=== PATIENT | female | born 1935 | race Caucasian/White ===

== ENCOUNTER 2021-03-24 10:36 | Inpatient (IN) | payer OTHER, BC ==
[~2021-03-24] VITALS: Ht 177.8 cm; Wt 88.6 kg
[2021-03-24] VITALS (27 sets, daily range): BP systolic 77–112; BP diastolic 35–63
--- NOTE | ~2021-03-24 | EMS ---
[place] [id number] [facility] Patient Care Report Name: JACQUE GONZALEZ Room #: 247-P ADM IN M.R.#: [id number] Admission: 03/24/21 Attend Phys: Bora Campbell MD Discharge: Date of : [birth year] Report #: [id number] THIS REPORT FOR: //name// Report Transmitted: 03/25/2021 09:17 EMS Care Summary [place], [place]/[facility] Incident [id number] @ 03/24/2021 10:07 Incident Location [address] [place] [address] Patient JACQUE GONZALEZ Female, 85 Years 1935 Patient Address [address] [place] [address] Patient History None Reported, Patient Allergies No known allergies, Patient Medications None Reported, Chief Complaint weakness Disposition Transported No Lights/Vina Dispatch Reason Sick Person Transported To [facility] Narrative m29 responded to a patient who was complaining of weakness. Upon arrival m29 found the patient sitting on the toilet. The patient stated she felt increasingly weak this morning which was uncommon for her. The patient wanted to be evaluated by her DR. m29 transported [place] [address] EMS Patient Care Report Name: JACQUE GONZALEZ Room #: 247-P [facility] IN MPankaj.#: [id number] Admission: 03/24/21 Attend Phys: Bora Campbell MD Discharge: Date of : [birth year] Report #: [id number] Initial Vitals @10:23P: 77,R: 18,BP: 105/58,Pain: 2/10,GCS: 15,Glucose: 112,SpO2: 96,Revised Trauma: 12, Assessments @10:30MENTAL:No Abnormalities,SKIN:No Abnormalities,HEENT:Head/Face: No Abnormalities,Eyes: No Abnormalities,Neck/Airway: No Abnormalities,LUNG SOUNDS:General: No Abnormalities,Left Upper: No Abnormalities,Right Upper: No Abnormalities,Left Lower: No Abnormalities,Right Lower: No Abnormalities,ABDOMEN:General: No Abnormalities,Left Upper: No Abnormalities,Right Upper: No Abnormalities,Left Lower: No Abnormalities,Right Lower: No Abnormalities,PELVIS//GI:No Abnormalities,EXTREMITIES:Left Arm: No Abnormalities,Right Arm: No Abnormalities,Left Leg: No Abnormalities,Right Leg: No Abnormalities,PULSE:NEURO:No Abnormalities, Impression Generalized Weakness Procedures @10:20ALS AssessmentResponse: UnchangedSucceeded Timeline 10:05,Call Received 10:05,Dispatch Notified 10:07,Dispatched 10:07,En Route 10:16,On Scene 10:17,At Patient 10:20,ALS Assessment,Response: UnchangedSucceeded, 10:23,BP: 105/58 M,PULSE: 77,RR: 18 R,SPO2: 96 Ox,ETCO2: ,B,PAIN: 2,GCS: 15, 10:25,Depart Scene 10:31,At Destination 10:46,Call Closed Disclaimer v1.1 Copyright 202 [employer] This EMS Care Summary contains data elements from the applicable legal record (which may be displayed differently). It is designed to provide pertinent information for the following purposes: continuity of care, clinical quality, and state data reporting. The complete legal record is available to ED staff and administrators of the receiving hospital in [employer] Patient Tracker. All data is provided "as is."
[2021-03-24] MEDS ORDERED: LIPITOR10 MG PO ×2 (11:13)
[2021-03-24] MEDS ORDERED: ELIQUIS2.5 MG PO ×2 (11:13)
[2021-03-24] MEDS ORDERED: KLOR-CON M2020 MEQ PO ×2 (11:14)
[2021-03-24] MEDS ORDERED: MEMANTINE HCL E28 MG PO ×2 (11:14)
[2021-03-24] MEDS ORDERED: KAPSPARGO SPRIN25 MG PO ×2 (11:14)
[2021-03-24] MEDS ORDERED: OMEPRAZOLE 20 M20 M1 PO ×2 (11:14)
[2021-03-24 11:17] LABS: ABSOLUTE NEUTROPHILS 4.7 thou/uL (1.4-8.2); BASOPHILS 1.1 % (0.0-2.0); EOSINOPHILS 2.2 % (0.0-3.0); HEMATOCRIT 35.7 % (37.0-47.0); HEMOGLOBIN 12.3 gm/dL (12.0-15.0); LYMPHOCYTES 22.6 % (24.0-44.0); MCH 31.4 pg (26.0-34.0); MCHC 34.3 g/dL (28.0-37.0); MCV 91.4 fL (80.0-100.0); MONOCYTES 4.4 % (1.0-8.0); PLATELET COUNT 118 thou/uL (150-400); POLYS 69.7 % (36.0-66.0); WBC 6.8 thou/uL (4.0-11.0)
[2021-03-24 11:30] LABS: CALCIUM 8.2 mg/dL (8.5-10.1); CREATININE 2.7 mg/dL (0.6-1.0)
[2021-03-24 11:32] LABS: POTASSIUM 2.7 mmol/L (3.5-5.1)
[2021-03-24 11:33] LABS: APTT 29.5 Seconds (24.5-32.8); INR 1.4
--- NOTE | 2021-03-24 13:39 | EKG ---
[place] [address] [facility] [place] [address] ELECTROCARDIOGRAM REPORT Name: JACQUE GONZALEZ Room #: 170-3 ADM IN M.R.#: [id number] Admission: 03/24/21 Attend Phys: Bora Campbell MD Discharge: Date of : [birth year] Report #: [id number] [facility] ED Test Date: 2021-03-24 Test Time: 10:49:55 Pat Name: JACQUE GONZALEZ Department: Room: 170 Gender: F [employer]: NMD : 1935 Requested By: Miguelito Telles Order Number: [id number] : Yuval Jernigan Measurements Intervals [place] Rate: 88 P: IN: QRS: -16 QRSD: 104 T: 38 QT: 428 QTc: 518 Interpretive Statements Atrial fibrillation Abnormal R-wave progression, early transition Probable inferior infarct, recent Prolonged QT interval No previous ECG available for comparison Electronically Signed On 03-24-2021 13:39:33 CDT by Yuval Jernigan [email or web address] <ELECTRONICALLY SIGNED> By: Yuval Jernigan MD, [facility] 03/24/21 1339 1049 1049 Yuval Jernigan MD, FACC /EPI
--- NOTE | 2021-03-24 15:01 | 2DMMODE ---
[facility] [place] [address] 2 D/M-MODE ECHOCARDIOGRAM Name: JACQUE GONZALEZ Room #: 170-3 ADM IN M.R.#: [id number] Admission: 03/24/21 Attend Phys: Bora Campbell MD Discharge: Date of : [birth year] Report #: [id number] THIS REPORT FOR: cc: Alvino Mak MD, Randy MD Lammoglia, Francisco J. MD ~ APPROVED REPORT Study performed: 03/24/2021 14:21:12 EXAM: Comprehensive 2D, Doppler, and color-flow Echocardiogram Patient Location: ER Status: routine BSA: 1.99 HR: 73 bpm BP: 87/46 mmHg Rhythm: Atrial Fibrillation Other Information Study Quality: Adequate/flat on back Indications Elevated troponin. NSTEMI. Hx: Afib 2D Dimensions IVSd: 10.35 (7-11mm) LVOT Diam: 20.56 (18-24mm) LVDd: 42.17 mm PWd: 11.77 (7-11mm) LVDs: 31.53 (25-40mm) Left Atrium: 36.63 (27-40mm) Aortic Root: 32.44 mm Volumes Left Atrial Volume (Systole) Single Plane 4CH: 33.91 mL Single Plane 2CH: 46.30 mL LA ESV Index: 22.00 mL/m2 Aortic Valve AoV [place].: 1.21 m/s AO Peak Gr.: 5.83 mmHg LVOT Max P.47 mmHg LVOT Max V: 0.79 m/s SEAN Vmax: 2.16 cm2 [facility] [email or web address] [address] 2 D/M-MODE ECHOCARDIOGRAM Name: JACQUE GONZALEZ Room #: 170-3 ADM IN ..#: [id number] Admission: 03/24/21 Attend Phys: Bora Campblel MD Discharge: Date of : [birth year] Report #: [id number] Pulmonary Valve PV [place].: 0.57 m/s PV Peak Gr.: 1.29 mmHg Tricuspid Valve TR [place].: 2.89 m/s RAP Estimate: 5.00 mmHg TR Peak Gr.: 33.46 mmHg PA Pressure: 38.00 mmHg Left Ventricle The left ventricle is normal size. Regional wall motion abnormalities are noted. Mild basal septal hypertrophy is present. Left ventricular systolic function is normal. LVEF is 50-55%. This study is not technically sufficient to allow evaluation of the LV diastolic function due to atrial fibrillation. Right Ventricle The right ventricle is normal size. The right ventricular systolic function is normal. Atria The left atrium size is normal. The right atrium size is normal. Aortic Valve The aortic valve is normal in structure; mildly sclerotic. No aortic regurgitation is present. There is no aortic valvular stenosis. Mitral Valve The mitral valve is normal in structure. Mild mitral regurgitation. No evidence of mitral valve stenosis. Tricuspid Valve The tricuspid valve is normal in structure. Trace to mild tricuspid regurgitation. Estimated PAP is 38mmHg. Pulmonic Valve Pulmonic valve leaflets are thickened. Great Vessels The aortic root is normal in size. Ascending aorta is not well visualized. IVC is normal in size and collapses >50% with inspiration. [facility] [email or web address] [address] 2 D/M-MODE ECHOCARDIOGRAM Name: JACQUE GONZALEZ Room #: 170-3 ADM IN .R.#: [id number] Admission: 03/24/21 Attend Phys: Bora Campbell MD Discharge: Date of : [birth year] Report #: [id number] There is no pericardial effusion. <Conclusion> The left ventricle is normal size. Mild basal septal hypertrophy is present. Regional wall motion abnormalities are noted. LVEF is 50-55%. The left atrium size is normal. The aortic valve is normal in structure; mildly sclerotic. The mitral valve is normal in structure. Mild mitral regurgitation. The tricuspid valve is normal in structure. Trace to mild tricuspid regurgitation. Estimated PAP is 38mmHg. Pulmonic valve leaflets are thickened. The aortic root is normal in size. There is no pericardial effusion. <ELECTRONICALLY SIGNED> By: Sergei Cardenas MD 03/24/211499 1500 Gallo Cardenas MD /SHIRA
--- NOTE | 2021-03-24 15:17 | NUR ---
PT WAS MORE RESPONSIVE AND ANSWERING QUESTIONS WHEN ARRIVING TO THE ED, PT NOW IS ONLY WAKING TO A SHAKING STIMULI. WHEN ATTEMPTING TO DRAW BLOOD ON THIS PATIENT SHE HAD NO RESPONSE TO PAIN. BP HAS BEEN STABILIZED ON THE 5MCG DOSING AND PATIENTS MENTAL COGNITION CONTINUES TO DECLINE. PROVIDER NOTIFIED AT THIS TIME
[2021-03-24 17:38] LABS: URINE BILIRUBIN NEGATIVE (Negative); URINE BLOOD 1+ (Negative); URINE CLARITY SL CLOUDY; URINE COLOR YELLOW; URINE GLUCOSE-RANDOM* NEGATIVE (Negative); URINE KETONES NEGATIVE (Negative); URINE LEUKOCYTES-REFLEX NEGATIVE (Negative); URINE NITRITE-REFLEX NEGATIVE (Negative); URINE PROTEIN (DIPSTICK) TRACE (Negative); URINE SPECIFIC GRAVITY >= 1.030 (1.005-1.035)
[2021-03-24 17:48] LABS: AMP/METHAMP Negative (Negative); BARBITURATES Negative (Negative); BENZODIAZEPINES Negative (Negative); COCAINE Negative (Negative); METHADONE Negative (Negative); OPIATES Negative (Negative); PCP Negative (Negative)
[2021-03-24 17:59] LABS: BACTERIA-REFLEX >30 Many /HPF (None Seen); SQUAMOUS 0-3 Few /LPF (0-3); URINE RBC 1-2 Rare /HPF (NONE SEEN); URINE WBC-REFLEX 0-5 Rare /HPF (0-5)
--- NOTE | 2021-03-24 19:13 | NUR ---
Patient arrived to ICU at 1730. She was by herself. Her spouse went home. Nurse talked with him in regards to visiting hours, and to second consent for central line placement. He expressed he understands the risks and benefits. He expressed he will be here in the morning. Patient is oriented, however wakes up and asks where she is. She is easily reoriented, but forgetful. She expressed she understood the risks and benefits of the central line as well. Consent signed. She is not progressing towards plan of care as evidenced by continued need for levophed with increasing increments.
--- NOTE | 2021-03-24 19:45 | NUR ---
VAT CONSULTED FOR PICC PLACEMENT. LEFT TL JACC IJ PLACED, TRIMMED 25/9CM EXTERNAL. PT TOLERATED WELL. CXR SHOWED TIP CURLED DIRECTING CEPHALED. RIGHT UPPER BASILIC TL PICC PLACED, TRIMMED 48CM/1CM EXTERNAL. PT TOLERATED WELL. BEDSIDE RN TO PULL IJ AND HOLD PRESSURE. CXR DONE.
--- NOTE | 2021-03-24 21:28 | NUR ---
This RN obtained consent from patient at 2030 for release of medical records from [facility]. Forms completed and faxed to medical records.
[2021-03-25] VITALS (84 sets, daily range): BP systolic 96–131; BP diastolic 31–65
[2021-03-25 05:14] LABS: HEMATOCRIT 32.2 % (37.0-47.0); HEMOGLOBIN 11.1 gm/dL (12.0-15.0); MCH 31.9 pg (26.0-34.0); MCHC 34.6 g/dL (28.0-37.0); MCV 92.2 fL (80.0-100.0); RBC 3.49 mil/uL (4.20-5.00); RDW 13.2 % (10.5-14.5); WBC 7.3 thou/uL (4.0-11.0)
[2021-03-25 06:18] LABS: CALCIUM 7.9 mg/dL (8.5-10.1); POTASSIUM 3.3 mmol/L (3.5-5.1)
--- NOTE | 2021-03-25 07:56 | EKG ---
[facility] [place] [address] ELECTROCARDIOGRAM REPORT Name: JACQUE GONZALEZ Room #: 247-P ADM IN M.R.#: [id number] Admission: 03/24/21 Attend Phys: Bora Campbell MD Discharge: Date of : [birth year] Report #: [id number] [facility] Test Date: 2021-03-25 Test Time: 07:27:41 Pat Name: JACQUE GONZALEZ Department: Room: [facility] Gender: F Plaster [employer]: JOAQUIN : 1935 Requested By: Opal Hi Order Number: [id number] MD: Alvarado Moon Measurements Intervals [place] Rate: 71 P: 65 IN: 191 QRS: 9 QRSD: 91 T: 82 QT: 394 QTc: 429 Interpretive Statements Sinus rhythm Borderline ST depression, lateral leads ST elevation, consider inferior injury Compared to ECG 03/24/2021 10:49:55 Atrial fibrillation no longer present Prolonged QT interval no longer present Electronically Signed On 03-25-2021 7:55:53 CDT by Alvarado Moon [email or web address] <ELECTRONICALLY SIGNED> By: Alvarado Moon MD, [facility] 03/25/21 0755 6 6 Alvarado Moon MD, [facility] /EPI
--- NOTE | 2021-03-25 12:00 | NUR ---
spouse present intermittently this am. updated on all cares. questions answered. pt resting quietly when undisturbed. physical therapy present to work with pt.
--- NOTE | 2021-03-25 15:45 | NUR ---
Patient admits to ICU with weakness/dehydration. Patient somulent. at bedside. Sp reports he has known patient since 2nd grade. They went to [employer] together. Both prev and spouses past away. They reunited on facebook. They have been less than a month.Patient lives in [facility]. THey and she moved from [facility] to and arrived Feb 14. Feb 17- Patient admitted to [facility] with chest pain. Spouse reports ruled out and dc home. He reports neurologist in [place] diagnosed patient with mild cog disorder. Spouse reports he believes some of her dementia may have caused her to decline. He reports he was excited to introduce her to friends and go out out eat but patient lacked interest. he reports she goes from reclyner to bathroom, from bed to bathroom. More sedintary lifestyle. He has chef head to assist with weekly meals. He has arranged medical apts in area. She [place] apt [place], She has a cyst on her thigh in which he has a f/u apt with general sx. His PCP is with [facility]. He is interested in psychiatry for f/u on outpatient basis. He reports patient uses a cane for ambulation. All needs on one level in home. One step to enter home. Patient with 7 children on [facility]. Spouse has been updating family. He reports she was excited to come to , the flight went well. Reviewed role of casemgt regarding dc planning. Casemgt following.
[2021-03-25 15:57] LABS: MAGNESIUM 1.6 mg/dL (1.8-2.4); POTASSIUM 3.1 mmol/L (3.5-5.1)
[2021-03-26] VITALS (34 sets, daily range): BP systolic 82–139; BP diastolic 36–76
[2021-03-26 05:09] LABS: CALCIUM 7.4 mg/dL (8.5-10.1); CREATININE 1.5 mg/dL (0.6-1.0); POTASSIUM 3.8 mmol/L (3.5-5.1)
--- NOTE | 2021-03-26 06:12 | NUR ---
ASSUMED CARE AT 1900. TURNED LEVOPHED OFF AT 1999, PT MAINTAINED NORMAL BP OVERNIGHT, MAP CONSISTENTLY IN 70'S. PT DROWSY, BUT ABLE TO REMEMBER [place], HOSPITAL, AND WHY SHE WAS HERE, WELL MONTH AND YEAR. THIS MORNING KEEPS WORRYING SHE WILL HAVE A BOWEL MOVEMENT AND "MAKE A MESS" BUT INTERACTS APPROPRIATELY NOT IMPULSIVE OR ANXIOUS/AGITITED. PROGRESSING TOWARDS GOALS, POSSIBLY TRANSFER OUT OF ICU TODAY.
--- NOTE | 2021-03-26 14:30 | NUR ---
Discussed during unit rounds and los with the hospitalist. Starting diet. Dr Fernando consult- new order r/t family feeling that she is depressed. Therapy to eval as well. No anticipated dc, and no anticipated dc over the weekend. Will cont. following as needed.
--- NOTE | 2021-03-26 18:17 | NUR ---
PT ABLE TO GET UP TODAY WITH ASSISTANCE FROM NURSING STAFF AND PT TO USE BEDSIDE COMMODE TO HAVE BM. PT ALSO ABLE TO SIT IN CHAIR TODAY WITH MINIMAL ASSISTANCE. PT TOLERATED CHAIR WELL TODAY, RESTING COMFORTABLY THROUGHOUT THE DAY. PT ASSISTED BACK TO BED AT APPROX 1600. PT VERY PLEASENT, AT BEDSIDE, PT A&OX3 NEEDS REDIRECTION OCCASSIONALLY. PT HAD NO ADVERSE EVENT NOR COMPLAINTS TODAY. WILL CONTINUE TO FOLLOW POC.
[2021-03-27] VITALS (17 sets, daily range): BP systolic 99–146; BP diastolic 44–76
[2021-03-27 03:32] LABS: HEMATOCRIT 29.7 % (37.0-47.0); HEMOGLOBIN 10.3 gm/dL (12.0-15.0); MCHC 34.5 g/dL (28.0-37.0); MCV 92.6 fL (80.0-100.0); RBC 3.21 mil/uL (4.20-5.00); RDW 13.3 % (10.5-14.5)
[2021-03-27 03:50] LABS: CALCIUM 7.6 mg/dL (8.5-10.1); CREATININE 1.4 mg/dL (0.6-1.0); POTASSIUM 3.4 mmol/L (3.5-5.1)
--- NOTE | 2021-03-27 05:41 | NUR ---
NO ACUTE EVENTS OVERNIGHT. PT RESTING COMFORTABLY.
[2021-03-27 09:09] LABS: CHOLESTEROL 160 mg/dL (<200); HDL CHOLESTEROL 28 mg/dL (>40); LDL CHOLESTEROL 109 mg/dL (<100); TC:HDL 5.7 Ratio (Not establshd); TRIGLYCERIDE 119 mg/dL (<150); VLDL 24 mg/dL (<40)
--- NOTE | 2021-03-27 16:43 | NUR ---
PT ALERT AND ORIENTED WITH FORGETFULNESS. PRN PAIN MED GIVEN FOR ABD PAIN. AT THE BEDSIDE. UPDATED ON PT'S PLAN OF CARE.
--- NOTE | 2021-03-27 17:43 | NUR ---
ORDERS GIVEN TO TRANSFER PT TO [facility] ROOM [address] V[address]REAL. NOTIFIED. REPORT CALLED ON TO THE FLOOR NURSE. PT TRANSFERED TO ROOM 210 WITH ALL HER BELONGINGS IN STABLE CONDITION.
[2021-03-28 04:45] VITALS: BP 118/67
[2021-03-28 06:49] LABS: HEMATOCRIT 32.4 % (37.0-47.0); HEMOGLOBIN 11.2 gm/dL (12.0-15.0); MCH 32.1 pg (26.0-34.0); MCHC 34.6 g/dL (28.0-37.0); MCV 92.6 fL (80.0-100.0); RBC 3.49 mil/uL (4.20-5.00); RDW 13.7 % (10.5-14.5); WBC 7.1 thou/uL (4.0-11.0)
[2021-03-28 07:15] LABS: CREATININE 1.4 mg/dL (0.6-1.0); POTASSIUM 3.9 mmol/L (3.5-5.1)
[2021-03-28 08:42] VITALS: BP 101/51
[2021-03-28 12:51] VITALS: BP 144/49
--- NOTE | 2021-03-28 16:26 | NUR ---
Assumed pt care at 7am.Pt in bed resting and wanted to take bath today. Assessment completed.vss.Pt c/o back pain and requested for med. [place] given as ordered with relief. Dr Moon and Adrian here,order noted.Pt here,updates given.Cardiology Teacher gave bath to pt after lunch and complete bed change done.Pt in chair resting and watching tv with . No further c/o. Dr Fernando will see pt later this evening or tomorrow .Will continue to monitor.
[2021-03-28 16:32] VITALS: BP 119/61
[2021-03-28 19:55] VITALS: BP 104/54
--- NOTE | 2021-03-29 04:41 | NUR ---
PT LYING IN BED. DENIES PAIN. RESTING COMFORTABLY. NO NEEDS VOICED. CALL LIGHT WITHIN REACH. FREQUENT OBSERVATION.
[2021-03-29 04:45] VITALS: BP 118/61
[2021-03-29 06:40] LABS: HEMATOCRIT 31.2 % (37.0-47.0); HEMOGLOBIN 10.6 gm/dL (12.0-15.0); MCH 31.4 pg (26.0-34.0); MCHC 33.8 g/dL (28.0-37.0); MCV 92.7 fL (80.0-100.0); RBC 3.37 mil/uL (4.20-5.00); RDW 13.8 % (10.5-14.5); WBC 5.4 thou/uL (4.0-11.0)
[2021-03-29 06:44] LABS: CALCIUM 8.3 mg/dL (8.5-10.1); CREATININE 1.5 mg/dL (0.6-1.0); POTASSIUM 4.1 mmol/L (3.5-5.1)
[2021-03-29 07:00] VITALS: BP 109/63
--- NOTE | 2021-03-29 10:29 | NUR ---
Assumed care of pt at 0700. Pt awake and alert but forgetful. Pt feeling weak and sleepy. Afib on the monitor. Dupont catheter in place. Family at bedside. Call light within reach. Fall precautions in place. Will continue to monitor.
[2021-03-29 11:20] VITALS: BP 107/57
[2021-03-29 15:00] VITALS: BP 106/65
[2021-03-29 20:15] VITALS: BP 115/61
[2021-03-30 01:41] VITALS: BP 122/57
--- NOTE | 2021-03-30 02:35 | NUR ---
PT HAS BEEN RESTING COMFORTABLY. WILL OPEN EYES AND ANSWER QUESTIONS. REPORTS JUST FEELING VERY TIRED. COVID TEST ORDERED AND COLLECTED FOR PURPOSES OF POSSIBLE TRANSFER TO [facility]. AFEBRILE. PT WAS AFIB IN THE 120'S SOMETIMES 130'S LOPRESSOR ORDERED AND GIVEN - RATE BETTER.PT DENIES ANY SOA OR CHEST PAIN. CHAVES TO D/D, DARK YELLOW U/O. SHE IS NPO FOR STRESS TEST IN THE MORNING.PT IS ALERT AND ORIENTED WITH FORGETFULNESS AND SLIGHT CONFUSION AT TIMES.
[2021-03-30 04:30] VITALS: BP 140/75
[2021-03-30 07:00] VITALS: BP 125/59
--- NOTE | 2021-03-30 10:06 | NUR ---
PT OFF UNIT TO [facility].
--- NOTE | 2021-03-30 13:00 | NUR ---
PT RETURN FROM [facility].
[2021-03-30 14:58] VITALS: BP 105/49
--- NOTE | 2021-03-30 17:14 | NUR ---
PT WILL STAY THE NIGHT ON 2N AND HAVE A SURGICAL CONSULT IN THE AM. WILL CONTINUE TO ASSESS.
[2021-03-30 19:55] VITALS: BP 107/68
--- NOTE | 2021-03-31 02:23 | NUR ---
PT IS A/O X4 WITH FORGETFULNESS AND NOTED FORGETFULNESS THE NIGHT HAS PROGRESSED COMPARED TO THE START OF SHIFT. ROOM AIR. VSS. AFEBRILE. C/O RIGHT SIDED ABDOMINAL PAIN. CHAVES IN PLACE DRAINING APPROPRIATELY. NO BM THIS SHIFT. NPO SINCE MIDNIGHT. FALL PRECAUTIONS IN PLACE, CALL LIGHT IS WITHIN REACH. WILL CONTINUE TO MONITOR.
[2021-03-31 04:20] VITALS: BP 117/49
[2021-03-31 06:28] LABS: HEMATOCRIT 28.6 % (37.0-47.0); MCH 32.2 pg (26.0-34.0); RBC 3.1 mil/uL (4.20-5.00); RDW 14.1 % (10.5-14.5); WBC 4.2 thou/uL (4.0-11.0)
[2021-03-31 06:31] LABS: CALCIUM 8.1 mg/dL (8.5-10.1); CREATININE 1.6 mg/dL (0.6-1.0); POTASSIUM 3.9 mmol/L (3.5-5.1)
[2021-03-31 08:30] VITALS: BP 110/56
[2021-03-31 11:30] VITALS: BP 128/63
[2021-03-31 16:00] VITALS: BP 127/65
[2021-03-31] MEDS ORDERED: METOPROLOL SUCC50 MG PO ×2 (16:39)
[2021-03-31] MEDS ORDERED: LIPITOR 20 MG T20 M1 PO ×2 (16:39)
[2021-03-31] MEDS ORDERED: CARDIZEM CD 18180 M3 PO ×2 (16:39)
[2021-03-31] MEDS ORDERED: ARTHRITIS PAIN100 GM TOP ×2 (16:41)
--- NOTE | 2021-03-31 17:03 | NUR ---
REPORT CALLED TO ASMITA RN [facility]
--- NOTE | 2021-03-31 17:22 | NUR ---
LOU CALLED AND INSTRUCTED [facility] DOCTOR INSTRUCT TO DISCONTINUE CHAVES CATHETER.
--- NOTE | 2021-03-31 17:46 | NUR ---
PICC LINE AND CHAVES DOSCONTINUED. PT DISCHARGED TO [facility] AND DR VALENZUELA UPDATED ON FLOOR.
--- NOTE | 2021-03-31 17:52 | NUR ---
Patient to dc to [facility] unit today.
== END 2021-03-31 17:54 | DRG 280 ==
LOC: ER 10:36 → ICU 12:19 → EROBS 12:19 → ICU 17:21 → 2N 03-27 17:44
PROVIDERS: Emergency Medicine; Internal Medicine; Nurse Practitioner; Psychiatry & Neurology Psychiatry; ADMIT Hospitalist; ATTEND Hospitalist
PROC: 05H633Z Insertion of Infusion Device into Left Subclavian Vein, Percutaneous Approach (ICD-10-PCS; principal; 2021-03-24)
DX: I21.4 Non-ST elevation (NSTEMI) myocardial infarction (principal); N17.0 Acute kidney failure with tubular necrosis; R65.11 Systemic inflammatory response syndrome (SIRS) of non-infectious origin with acute organ dysfunction; Z88.2 Allergy status to sulfonamides; Z20.822 Contact with and (suspected) exposure to COVID-19; Z79.01 Long term (current) use of anticoagulants; K21.9 Gastro-esophageal reflux disease without esophagitis; I10 Essential (primary) hypertension; Z90.49 Acquired absence of other specified parts of digestive tract; E87.6 Hypokalemia; E86.0 Dehydration; I48.0 Paroxysmal atrial fibrillation; I95.9 Hypotension, unspecified; Z68.28 Body mass index [BMI] 28.0-28.9, adult; E78.5 Hyperlipidemia, unspecified; F32.9 Major depressive disorder, single episode, unspecified; F41.9 Anxiety disorder, unspecified
CPT/HCPCS: 10078; 10081; 10196; 27000

== ENCOUNTER 2021-03-31 17:27 | Inpatient (IN) | payer OTHER, BC ==
[~2021-03-31] VITALS: Ht 177.8 cm; Wt 88.5 kg
[~2021-03-31 17:27] MED LIST: ARTHRITIS PAIN100 GM TOP; CARDIZEM CD 18180 M3 PO; ELIQUIS2.5 MG PO; KAPSPARGO SPRIN25 MG PO; KLOR-CON M2020 MEQ PO; LIPITOR 20 MG T20 M1 PO; LIPITOR10 MG PO; MEMANTINE HCL E28 MG PO; METOPROLOL SUCC50 MG PO; OMEPRAZOLE 20 M20 M1 PO
--- NOTE | 2021-03-31 18:42 | NUR ---
1751 pt arrived unit vis w/c from [address] [place] [address]. Alert and oriented to person. pt is confused, aware she is in the hospital, but thought she was in [place]. PT KNEW IT WAS 2020 BUT thought it was September. Report given by 2N RN stated pt was x1 assist and ambulates with a walker but upon arrival to [facility] pt was a max x2 assist and had to use a w/c. She has a large bruise to her inner right arm, a medium sized bruise to her left inner elbow, and a bruise to the left side of her neck. Per report pt had a richards in due to urinary retention but was removed prior to arrival to the unit, along with a PICC line. Pt reports passive SI with wishes to go to sleep and not wake up, that she reports "comes and goes" and is currently having the thoughts "a little bit". Pt denied plan and intent and was able to contract for safety. Pt reports a decrease in appetite and did not wish to eat her dinner tonight.
[2021-03-31 19:13] VITALS: BP 138/65
--- NOTE | 2021-04-01 02:37 | NUR ---
PATIENT WAS VERY ORGANIZED WHEN I TALK TO HER, DENIES SI/HI BUT DOES RATE HER DEPRESSION AND ANXIETY A 7/10. PATIENT HOOKED UP WITH AN OLD HIGHSCHOOL BOYFRIEND AND SHE CAME TO TO RECONNECT WITH HIM. AND AFTER ONE WEEK THEY AND NOW SHE IS HAVING SECOND THOUGHTS. THE EVENING PROGRESSED, PATIENT BECAME MORE CONFUSED AND HAD TO BE TOLD SEVERAL TIMES THAT IT WAS NIGHT TIME. PATIENT EVENTUALLY WENT TO SLEEP AND HAS SLEPT THROUGH THE NIGHT.
[2021-04-01 06:57] LABS: CHOLESTEROL 120 mg/dL (<200); HDL CHOLESTEROL 20 mg/dL (>40); LDL CHOLESTEROL 80 mg/dL (<100); TRIGLYCERIDE 101 mg/dL (<150); VLDL 20 mg/dL (<40)
[2021-04-01 09:37] VITALS: BP 106/50
--- NOTE | 2021-04-01 11:09 | NUR ---
04-01-2021--1030--Met with Dr. Manning and patient in my office to begin collecting information for the completion of psychosocial assessment. The doctor would like a phone meeting with patient and new David ([phone]). (He is listed as her DPOA however Dr. Fernando stated in her notes she has the capacity to change her DPOA if she decides to.) Patient states that she was on February 26, 2021 to an old classmate (they first met in 2nd grade). She found him online and they texted a couple of times. They were both so they met in person and got . She was originally from [facility] he wanted her to move to [place] with him but she would prefer if he were to move to [place] with her. Patient was admitted to this hospital for a "heart attack". The surgeon wants her to have her gallbladder out an she asked the doctor his opinion and he told her any surgery is dangerous but at her age he would suggest trying other options first. Patient states she is very tired and doctor told her she didn't have to do groups today as she just got here. Call attempted to David to set up meeting for tomorrow. No answer and no answering machine. Will attempt call later this date.
[2021-04-01 11:57] VITALS: BP 106/50
--- NOTE | 2021-04-01 13:51 | NUR ---
04-01-2021--7769--Call to Mr. Hargrove, patient's . I explained we were wanting to do a family meeting on the phone tomorrow at 11:00. He stated he would be available.
--- NOTE | 2021-04-01 14:03 | NUR ---
04-01-2021--1400--Doctor notified of family meeting tomorrow, 04-02-2021 with and patient for 1100.
--- NOTE | 2021-04-01 15:14 | NUR ---
PATIENT CARE RESUMMED AT 0700. PATIENT WAS UP IN A MICHAELA-CHAIR UPON ROUNDS. PATIENT IS A&O*3, PLEASENT, BUT ANXIOUS. PATIENT STATES SHE HAS A DECRESSED APPETITE, PATIENT DID NOT EAT MUCH OF HER BREAKFAST OR LUNCH. PATIENT DENIES HAVING SI/HI/VH/AH. PATIENT STATES SHE IS HAVING SOME ANXIETY AND RATED IT AN 8 ON A SCALE OF 0-10. PATIENT STATED SHES HAVING SO MUCH ANXIETY BECAUSE SHE IS WORRIED ABOUT [facility], AND HAS NOT SEEN THEM SINCE SHE [place] TO [place]. PATIENT STATES SHE IS ALSO DEPRESSED AND RATED AN 8 ON A SCALE OF 0-10. PATIENT SAYS SHES DEPRESSED BECAUSE OF THESE SUDDEN CHANGES IN HER HEALTH, AND NOT HEARING FROM HER CHILDREN. PATIENT DID STATE SHE WAS HAVING SOME DIARRHEA THAT SHE COULD NOT CONTROL. ABDOMEN WAS SOFT AND BOWEL SOUNDS WERE PRESENT. LUNG SOUNDS ARE CLEAR. UPON ASSESSMENT PATIENT HAS A MEDIUM SIZED BRUISE ON THE LEFT SIDE OF THE NECK. ANOTHER BRUISE LARGER IN SIZE TO HER RIGHT TRICEPT/AC, A MEDIUM BRUISE TO THE RIGHT AC, AND A MEDIUM BRUISE TO THE RIGHT WRIST. PATIENT ALSO HAS A DIME SIZED LUMP IN HER RIGHT GRION AREA. PATIENT IS ON FALL PRECAUTIONS. WILL CONTINUE TO MONITOR FOR SAFETY AND BEHAVIORS.
[2021-04-01 18:52] VITALS: BP 128/54
--- NOTE | 2021-04-02 03:38 | NUR ---
PATIENT HAS BEEN MEDICATION COMPLIANT AND COMPIANT WITH STAYING IN ROOM. PATIENT HAS HAD NO MORE BOUTS WITH DIARRHEA. PATIENT HAS BEEN CALM AND COOPERATIVE WITH NO NEW CONCERNS. PATIENT DENIES SI/HI.
[2021-04-02 09:20] VITALS: BP 125/54
[2021-04-02 10:11] VITALS: BP 125/54
--- NOTE | 2021-04-02 12:47 | NUR ---
04-02-2021--1100--Meeting with Dr. Manning, this worker and patient's on the phone. Patient and David are newly weds and had know each oher from 2nd grade up through high school. They recently reconnected after her spouse of 62 yrs and his of 56 years had . They were on February 26, 2021. She moved hefe woth him from [place]. She left her family in [place] and came to his home in [place], [place]. Next family meeting scheduled for at 1300.
--- NOTE | 2021-04-02 13:12 | NUR ---
Minerva Franklin was alert and oriented to self and time throughout the day. She thought that she was in [place] and thought she was "at a home", and she could not recall why she was in the hospital. Pt was reoriented to her surroundings and why she was in the hospital. Pt appears confused and forgetful, and asked this RN "how long have I been needing help like this?" while staff was assisting pt to the bedside commode. She denied feelings of anxiety, but endorsed "some" feelings of depression and expressed she "sometimes" has thoughts of wishing she could go to sleep and not wake up but stated "I haven't felt like that at all yet today". Pt started the day off on contact isolation for c-diff while results were pending but came back negative. Pt was then taken off of contact precautions but was currently napping. Pt will be encouraged to come to the day room and participate in afternoon group. Pt was x1-2 this shift, is very unsteady and weak on her feet, but is able to ambulate very short distances with a walker. Pt had an episode of diarrhea this morning but did not have any episodes of incontinence this shift. She denied pain and any physical symptoms this shift but did report a decrease in appetite. She did not wish to eat any of breakfsat despite tray setup and much encouragement from staff. Pt's COVID test was completed today, results currently pending. Pt remains a high fall risk and had yellow non-skid socks on, bed alarm remained on throughout the day and pt had assistance from staff when ambulating/transferring/toileting. Will continue to monitor.
[2021-04-02 19:24] VITALS: BP 105/42
--- NOTE | 2021-04-03 00:01 | NUR ---
Pt is resting in bed, she spoke with her spouse tonjuan however she does not remember speaking with him. Pt is alert to self, affect is flat but pleasant. She voiced that she was just tired. She was okay with lights being turned off. Offered pt water and sips of her ensure shake. Denies SI/HI/AH/VH, will continue to monitor throughout shift.
[2021-04-03 07:35] VITALS: BP 109/53
[2021-04-03 08:57] VITALS: BP 109/53
--- NOTE | 2021-04-03 09:25 | NUR ---
RESUMMED CARE FROM OVERNIGHT SHIFT THIS AM, PATIENT SITTING IN BED QUIET. PATIENT ALERT ROIENTED TIMES 3 PATIENTS AFFECT FLAT PATIENT STATES HAS SOME DEPRESSION. PATIENT DENIES ANXIETY PATIENT DENIES SI/HI/AH/VH AT PRESENT. PATIENTS ABDOMEN SOFT BOWEL SOUNDS PRESENT, PATIENTS LUNGS CLEAR. PATIENT CALM COOPERATIVE WILL CONTINUE TO MONITOR PATIENT FOR SAFETY AND BEHAVIORS.
[2021-04-03 16:54] LABS: ABSOLUTE NEUTROPHILS 3.7 thou/uL (1.4-8.2); BASOPHILS 0.4 % (0.0-2.0); EOSINOPHILS 2.1 % (0.0-3.0); HEMATOCRIT 28.6 % (37.0-47.0); HEMOGLOBIN 9.8 gm/dL (12.0-15.0); LYMPHOCYTES 21.7 % (24.0-44.0); MCH 31.9 pg (26.0-34.0); MCHC 34.2 g/dL (28.0-37.0); MCV 93.1 fL (80.0-100.0); MONOCYTES 3.1 % (1.0-8.0); PLATELET COUNT 155 thou/uL (150-400); POLYS 72.7 % (36.0-66.0); RBC 3.07 mil/uL (4.20-5.00); RDW 14.2 % (10.5-14.5); WBC 5.1 thou/uL (4.0-11.0)
[2021-04-03 17:06] LABS: ALBUMIN 1.6 g/dL (3.4-5.0); CALCIUM 8.1 mg/dL (8.5-10.1); CREATININE 1.6 mg/dL (0.6-1.0); MAGNESIUM 1.7 mg/dL (1.8-2.4); POTASSIUM 3.1 mmol/L (3.5-5.1); TOTAL BILIRUBIN 0.4 mg/dL (0.2-1.0); TOTAL PROTEIN 5.3 g/dL (6.4-8.2)
[2021-04-03 17:18] LABS: URINE BILIRUBIN NEGATIVE (Negative); URINE BLOOD 1+ (Negative); URINE CLARITY CLEAR; URINE COLOR YELLOW; URINE GLUCOSE-RANDOM* NEGATIVE (Negative); URINE KETONES NEGATIVE (Negative); URINE NITRITE-REFLEX NEGATIVE (Negative); URINE PROTEIN (DIPSTICK) NEGATIVE (Negative); URINE SPECIFIC GRAVITY >= 1.030 (1.005-1.035)
[2021-04-03 17:21] LABS: URINE LEUKOCYTES-REFLEX 1+ (Negative)
[2021-04-03 17:26] LABS: SQUAMOUS >10 Many /LPF (0-3)
[2021-04-03 17:29] LABS: BACTERIA-REFLEX >30 Many /HPF (None Seen); CASTS None Seen /LPF (None Seen); URIC ACID CRYSTALS 0-3 Few /LPF (None Seen); URINE WBC-REFLEX >25 Many /HPF (0-5)
[2021-04-03 17:30] LABS: URINE RBC 1-2 Rare /HPF (NONE SEEN)
--- NOTE | 2021-04-05 00:10 | H ---
[facility] [place] [address] HISTORY AND PHYSICAL Name: JACQUE GONZALEZ Room #: 525A-A DIS IN M.R.#: [id number] Admission: 03/31/21 Attend Phys: Luis Enrique Manning DO Discharge: 04/03/21 Date of : [birth year] Report #: [id number] THIS REPORT FOR: cc: Alvino Mak MD, Randy MD Kerstein,Luis Enrique Machuca DO ~ DATE OF SERVICE: 03/31/2021 INPATIENT PSYCHIATRIC EVALUATION ATTENDING PSYCHIATRIST: Luis Enrique Manning DO PRINTER FLOOR COVERING ASSISTANT: Bora Campbell MD REASON FOR ADMISSION: Depression, failure to thrive concerns, recent admission for NSTEMI and YEHUDA. SOURCES OF INFORMATION: Interview with the patient. She did not want her , David, call today. Records here at [facility] including psychiatric consultation by my colleague, Ann Fernando MD on the Medical Unit [address] [place]. CHIEF COMPLAINT: Unspecified. HISTORY OF PRESENT ILLNESS: This is an 85-year-old female, seated in a wheelchair, appearing a bit unkempt, wearing glasses. The patient is complaining of symptoms of depression. She is a bit reserved and takes some nudging to get her to elaborate on her situation. The patient has lived in [place] most of her life, and most recently lived in the [place], [place] area [place] [facility]. She and her current both became recently and they know each other from grade school, second grade, and have engaged in a most notable late life second marriage. The patient states she is living with her in the [place] area. The has an adult son that has been living with them, but is moving out shortly. It sounds like the marriage has been within the last months and unfortunately the patient has had various health issues necessitating hospitalization such that despite moving to [place] on paper she has been hiking in various hospitals and nursing homes since she began her marriage and so one could say an unusual honeymoon, but in all seriousness this has been very problematic for the patient. I interviewed her in social insurance specialist, Yesica's office. The patient basically describes she has had a lot of physical concerns as well, ranging from weakness, nausea and most notably at the end of her medical hospitalization, she had a consultation by Dr. Timur Sharp, general surgeon here, and he recommended a month delay in her having a cholecystectomy. I briefly discussed with the patient that certainly if it is absolutely necessary, then she would need a second surgery, but at her age if things can be managed [facility] [address] [place] [address] HISTORY AND PHYSICAL Name: JACQUE GONZALEZ Room #: 525A-A [facility] IN M.R.#: [id number] Admission: 03/31/21 Attend Phys: Luis Enrique Manning DO Discharge: 04/03/21 Date of : [birth year] Report #: [id number] without general anesthesia and invasive surgery that is always worth a try. I suggested she ask Dr. Sharp if she is a candidate for percutaneous cholecystostomy, which interventional radiology can perform. In any event, the patient is wanting help. I discussed with her to the best of my knowledge in the population that is immediately post-PA, there is a study done using sertraline called the SADHART study. So, I felt that it was worth a try. Otherwise, her medication regimen was pretty light coming off the medical unit, metoprolol succinate 50 mg oral daily, diltiazem 180 mg daily, atorvastatin 20 mg daily, pantoprazole 20 mg p.o. daily and the usual house PRNs including Zofran. From Dr. Fernando's consultation, I will review her psychiatric and medical history findings. PAST PSYCHIATRIC HISTORY: Mild cognitive impairment within the past year, history of major depressive disorder and mental health treatment in the past during a custody vaughn regarding grandchildren. She had brief SI then, but took no actions. Additionally Dr. Fernando noted that the geographic change has been disruptive. She reported feeling depressed with poor mood, sleep and appetite. Admits she has been having fleeting suicidal thoughts, no intent to harm self, but the patient is averse to any attempts to harm herself, which would be painful. She has made some writings on [employer] about suicidal thoughts. did not feel that she would take action on those. ALLERGIES: SULFONAMIDE, ANTIBIOTICS. MEDICATIONS: On the unit, sertraline 25 mg oral daily now, metoprolol succinate 50 mg oral daily, diltiazem 180 mg daily, atorvastatin 20 mg daily, pantoprazole 20 mg daily. Otherwise, house PRNs. NSTEMI, dehydration, renal failure for a recent admission. Dr. Fernando diagnosed her with MDD and mild cognitive impairment. LABORATORY DATA: That I reviewed include an H and H 7.0 and 28.6 on 03/31/2021. White count 4.2, platelet count 127. Coagulation: PT 15.0 on 03/24/2021. INR 1.408, PTT 29.5. Chemistry: Sodium 135, potassium 3.9, chloride 101, bicarbonate 21, anion gap 13, BUN 30, creatinine 1.6, estimated GFR 30, glucose 98. Lactic acid 1.5, calcium 8.1, magnesium 2.6. CK 126. Interestingly, her troponin peaked at 6437 on 03/25/2021. Triglycerides 101, cholesterol 120, LDL 80, HDL 20. Urinalysis from 03/24/2021 showed trace protein, 1+ blood, 2.0 urobilinogen, greater than 30 bacteria. Toxicology was negative. COVID PCR done on 03/30/2021 was negative and Berman test was negative on 03/24/2021 MICROBIOLOGY: She had negative blood cultures on 03/24/2021; however, on 03/24/2021, she cultured negative for pathologic kendrick in her urine. Dr. Moon consulted Cardiology during her admission downstairs. I do not [facility] [address] [place] [address] HISTORY AND PHYSICAL Name: JACQUE GONZALEZ Room #: 525A-A [facility] IN [facility]#: [id number] Admission: 03/31/21 Attend Phys: Luis Enrique Manning DO Discharge: 04/03/21 Date of : [birth year] Report #: [id number] think she needs cardiology consultation at this time. PHYSICAL EXAMINATION: VITAL SIGNS: Temperature 36.6, pulse 63, respirations 18, BP was 106/58, O2 sat 98%. Weight is not recorded. GENERAL: Unkempt physical appearance, fairly large habitus female, in wheelchair. MENTAL STATUS EXAMINATION: Well-developed, well-appearing female. Attention fair. Concentration fair. Speech soft, decreased rate. Thought process linear and goal directed in general. Thought content, relative poverty of thought. Psychomotor retardation noted, but no psychomotor agitation. Denied SI, HI. Denied auditory, visual, or tactile hallucinations. Mood and affect was depressed, congruent, restricted, diminished range. Memory not formally tested. Insight and judgment limited. Fund of knowledge at least average. I believe the patient does have a higher level of education, I did not get that. She has several adult children, did not go into details of that. PAST SURGICAL HISTORY: Appendectomy, umbilical hernia repair, bilateral total hip replacement, pilonidal cyst, left thigh cyst. PAST MEDICAL HISTORY: Atrial fibrillation, on Eliquis; hyperlipidemia; GERD; hypertension. SOCIAL HISTORY: Former smoker. Interestingly, Dr. Sharp found she takes daily gin and tonic. I did not get that from herself to revisit that. REVIEW OF SYSTEMS: From Dr. Sharp' consult yesterday: CONSTITUTIONAL: No fever, no chills. Did report of vague weakness. HEENT: Denies blurred vision, double vision, headaches, hearing loss, sinus drainage or sore throat. CARDIOVASCULAR: Denied to me today. RESPIRATORY: Denies cough, wheezing or hemoptysis or shortness of air. GASTROINTESTINAL: Does report intermittent abdominal pain. GENITOURINARY: Denies dysuria, hematuria, kidney stones. No urinary frequency, urgency or incontinence. MUSCULOSKELETAL: Denies muscle pain, joint pain. NEUROLOGIC: Denies tremors, stroke, seizure. HEMATOLOGIC: Denies easy bruising, easy bleeding, enlarged lymph nodes. SKIN: No rash or ulceration. ENDOCRINE: No heat or cold intolerance. PSYCHIATRIC: Depression. FORMULATION: An 85-year-old female sent out to the [facility] for further evaluation of depression. Functional level. 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 PLAN: [facility] to evaluate, stabilize. Dr. Campbell is consulted. Starting her on sertraline 25 mg oral daily given discussion with the patient and its evidence in the SADHART study. We will see how the patient does over the next several days. I have consulted Physical Therapy for her. Consider OT if necessary. STRENGTHS: She is insured, has family support. WEAKNESSES: Advanced age, multiple morbidities. Time spent on this case is greater than 60 minutes, greater than 50% of time was spent in review of records and coordination of care. <ELECTRONICALLY SIGNED> By: Luis Enrique Manning DO 04/05/21 0010 1210 [id number] Luis Enrique Manning DO /nt
--- NOTE | 2021-04-06 09:04 | D ---
[facility] [place] [address] DISCHARGE SUMMARY Name: JACQUE GONZALEZ Room #: [facility] IN M.R.#: [id number] Admission: 03/31/21 Attend Phys: Luis Enrique Manning DO Discharge: 04/03/21 Date of : [birth year] Report #: [id number] THIS REPORT FOR: cc: Alvino Mak MD, Randy MD Kerstein,Luis Enrique Machuca DO ~ DATE OF SERVICE: 04/03/2021 INPATIENT PSYCHIATRIC DISCHARGE SUMMARY ATTENDING PSYCHIATRIST: Luis Enrique Manning DO CORRECTION OFFICER REFORMATORY: Teri Huizar MD DISCHARGE DIAGNOSES: Acute kidney injury, dehydration, failure to thrive, major depressive disorder. The patient has numerous medical comorbidities including recent non-ST elevation myocardial infarction, acute cholecystitis with deferred cholecystectomy per General Surgery. The patient was emergently discharged to the [address] [place] [address] Medical Unit at [facility] due to her inability to take in nutrition and need for intravenous fluids, electrolyte imbalance, etc. She was discharged n.p.o. Psychiatric and medical care will be per the hospitalist. LABORATORY DATA: Significant laboratories during her psychiatric admission on 04/03/2021, H and H 9.8 and 28.6, white count 5.1, platelet count 155, sodium 133, potassium 3.1, BUN 32, creatinine 1.6, glucose 175, calcium 8.1, magnesium 1.7. Lactic acid 1.5. Her NT-proBNP was 26,572, total protein ____, albumin 1.6, which is severe malnutrition, alkaline phosphatase 188. Urinalysis had multiple positives including bacteria, white blood cells, leukocyte esterase. She does have a urine culture pending and is being given IV Rocephin. REASON FOR ADMISSION: An 85-year-old female sent up from actually the medical floor after a recent NSTEMI and cholelithiasis, cholecystitis concern, thought to be very depressed recently , relocated from [facility] out here to [place]. HOSPITAL COURSE: The patient was admitted to Geriatric Psychiatry Unit. We had a C. diff concern for her on her first day here, she was started on sertraline 25 mg daily, given the SADBANNERT study considerations for pending official treatment of persons with depression shortly after an ID. In any event, the patient was unable to eat or drink. No longer felt to be medically stable for the [facility]. Vital signs close to time of discharge were temperature 36.2, pulse 84, respirations 18, BP 109/53, O2 sat 96%. Given the emergent nature of discharge, there is no mental status exam. PROGNOSIS: For this patient is quite guarded given her age and multiple medical [facility] [address] [place] [address] DISCHARGE SUMMARY Name: JACQUE GONZALEZ Room #: 525A-A [facility] IN M.R.#: [id number] Admission: 03/31/21 Attend Phys: Luis Enrique Manning, Discharge: 04/03/21 Date of : [birth year] Report #: [id number] morbidities. I saw the patient today 04/04/2021 in emergent consultation liaison capacity, they requested for Dr. Ann Fernando who took care of her on the medical unit last week to continue care on Monday of this week forward. I have given a sign out to Dr. Fernando as well as a separate dictation regarding my findings from [address] [place] [address] today. <ELECTRONICALLY SIGNED> By: Luis Enrique Manning DO 04/06/21 0904 1118 1154 Luis Enrique Manning DO /nt
[2021-04-07] MEDS ORDERED: CEFUROXIME250 MG PO (15:29)
[2021-04-07] MEDS ORDERED: MORPHINE S10 MG/5 M2 SUBLING (15:29)
[2021-04-07] MEDS ORDERED: LORAZEPAM I2 MG/1 ML SUBLING (15:29)
[2021-04-07] MEDS ORDERED: PEPCID20 MG PO (15:29)
== END 2021-04-03 18:15 | disposition admitted as inpatient to this hospital (09) | DRG 885 ==
LOC: SBH 17:27
PROVIDERS: Internal Medicine; ADMIT Psychiatry & Neurology Psychiatry; ATTEND Psychiatry & Neurology Psychiatry
DX: F33.2 Major depressive disorder, recurrent severe without psychotic features (principal); N17.9 Acute kidney failure, unspecified; N18.30 Chronic kidney disease, stage 3 unspecified; I21.4 Non-ST elevation (NSTEMI) myocardial infarction; N39.0 Urinary tract infection, site not specified; R45.851 Suicidal ideations; I48.91 Unspecified atrial fibrillation; E86.0 Dehydration; R62.7 Adult failure to thrive; E78.5 Hyperlipidemia, unspecified; K80.20 Calculus of gallbladder without cholecystitis without obstruction; I25.10 Atherosclerotic heart disease of native coronary artery without angina pectoris; I12.9 Hypertensive chronic kidney disease with stage 1 through stage 4 chronic kidney disease, or unspecified chronic kidney disease; G31.84 Mild cognitive impairment of uncertain or unknown etiology; Z20.822 Contact with and (suspected) exposure to COVID-19; E87.6 Hypokalemia; E83.42 Hypomagnesemia; Z68.28 Body mass index [BMI] 28.0-28.9, adult; Z88.1 Allergy status to other antibiotic agents; Z88.2 Allergy status to sulfonamides
CPT/HCPCS: 10880

== ENCOUNTER 2021-04-03 18:42 | Inpatient (IN) | payer OTHER, BC ==
[~2021-04-03] VITALS: Ht 177.8 cm; Wt 88.5 kg
[2021-04-03 19:33] VITALS: BP 118/57
[2021-04-04 00:39] VITALS: BP 113/54
--- NOTE | 2021-04-04 03:31 | NUR ---
ASSESSED AT SART OF SHIFT. PT TRANSFERRED FROM [facility] @1845. ADMISSION DONE AND PT ORIENTED TO THE UNIT. PT IS A&O4 TO PERSON, PLACE, SITUATION AND TIME. SOMEWHAT FORGETFULL. DENIES SUCIDE IDEATION AND NO SYMPTOMPS SEEN. PER ORDER SITTER BY BEDSIDE AT MIDNIGHT. IV INTACT AND FLUIDS INFUSING. POTASSIUM AND MG REPLACED. PT VOIDS VIA BEDPAN. REDNESS IN BOTTOM NOTED. 96% ON RA. FALL PREC IN PLACE. NO FURTHER SIGNS OF DISCOMFORT. NPO STATUS MAINTAINED. WILL CONT WITH POC TILL EOS.
[2021-04-04 04:39] LABS: HEMATOCRIT 26.2 % (37.0-47.0); HEMOGLOBIN 9.2 gm/dL (12.0-15.0); MCH 32.4 pg (26.0-34.0); MCV 92.7 fL (80.0-100.0); RBC 2.82 mil/uL (4.20-5.00); RDW 14.2 % (10.5-14.5)
[2021-04-04 04:45] LABS: INR 1.26; PROTIME 13.6 Seconds (10.5-12.1)
[2021-04-04 05:22] LABS: ALBUMIN 1.6 g/dL (3.4-5.0); CREATININE 1.5 mg/dL (0.6-1.0); POTASSIUM 3.3 mmol/L (3.5-5.1); TOTAL BILIRUBIN 0.4 mg/dL (0.2-1.0); TOTAL PROTEIN 5.2 g/dL (6.4-8.2)
[2021-04-04 06:41] VITALS: BP 109/60
[2021-04-04 07:05] VITALS: BP 117/63
[2021-04-04 11:32] VITALS: BP 113/55
[2021-04-04 15:23] VITALS: BP 115/65
[2021-04-04 18:14] LABS: % SATURATION 34 % (20-39); IRON 40 ug/dL (50-170); TIBC 119 ug/dL (250-450)
[2021-04-04 18:49] LABS: FOLIC ACID 2.3 ng/mL (8.6-58.9)
[2021-04-04 19:30] VITALS: BP 119/55
--- NOTE | 2021-04-05 00:20 | NUR ---
UPON SHIFT ASESSMENT, PT AOX4 WITH INTERMITTENT FORGETFULNESS. PT EXPRESSING CONCERN AND RELUCTANCE IN BEING COMPLIANT WITH PLAN OF CARE DUE TO REPORTS OF BEING OVERWHELMED WITH FACETS OF BEING HOSPITALIZED. PROVIDED REASSURANCE, EMOTIONAL SUPPORT AND THERAPEUTIC COMMUNICATION, PT RECEPTIVE. PT DENIES PAIN AND SOB WHILE ON ROOM AIR. PT WITH INTERMITTENT NONPRODUCTIVE COUGH. PT TOLERATING PO INTAKE OF FLUIDS, REPORTS DECREASED PO INTAKE OF SOFT/FIBER RESTRICTED DIET. PT WITH INTERMITTENT NAUSEA WITHOUT EMESIS. ONCALL SIDE PANEL HANGER NOTIFIED, EMAR UPDATED. PT INCONTINENT OF BLADDER, EXTERNAL FEMALE CATHETER IN PLACE, PATENT WITH SHAQ URINE. PT RESTING IN BED THROUGHOUT SHIFT, FREQUENT REPOSITIONING ENCOURAGED, PT REFUSING REPOSITIONING ASSISTANCE, REQUESTING TO CHANGE ELEVATION OF HEAD OF BED. +1 PITTING EDEMA NOTED TO BLE. SENSATION INTACT, CAPILLARY REFILL LESS THAN 3SEC, PERIPHERAL PULSES PALPABLE IN ALL EXTREMITIES. PT ENCOURAGED TO NOTIFY STAFF FOR ALL NEEDS, CALL LIGHT WITHIN REACH, BED ALARM ON, BED LOCKED IN LOWEST POSITION, ROOM REMAINS NEAR NURSES STATION, FREQUENT MONITORING WILL CONTINUE.
[2021-04-05 04:30] VITALS: BP 136/75
--- NOTE | 2021-04-05 07:18 | NUR ---
03-30-2021--Meeting with of patient with Dr. Manning to gather information for a psychosocial. Patient's new told he can call here to get information on patient but only one time per day.
--- NOTE | 2021-04-05 07:21 | NUR ---
04-02-2021--ERROR ON DATE OF LAST NOTE--IT WAS 04-02-2021
[2021-04-05 09:21] VITALS: BP 117/58
[2021-04-05 12:27] VITALS: BP 106/52
[2021-04-05 16:00] VITALS: BP 115/57
[2021-04-05 16:56] LABS: HEMATOCRIT 27.4 % (37.0-47.0); HEMOGLOBIN 9.2 gm/dL (12.0-15.0); MCH 31.2 pg (26.0-34.0); MCHC 33.6 g/dL (28.0-37.0); RBC 2.95 mil/uL (4.20-5.00); RDW 14.1 % (10.5-14.5); WBC 5.9 thou/uL (4.0-11.0)
[2021-04-05 17:11] LABS: ALBUMIN 1.5 g/dL (3.4-5.0); CREATININE 1.3 mg/dL (0.6-1.0); MAGNESIUM 1.7 mg/dL (1.8-2.4); POTASSIUM 3.6 mmol/L (3.5-5.1); TOTAL BILIRUBIN 0.3 mg/dL (0.2-1.0); TOTAL PROTEIN 5.1 g/dL (6.4-8.2)
[2021-04-05 17:12] LABS: CALCIUM 8.5 mg/dL (8.5-10.1)
[2021-04-05 19:51] VITALS: BP 109/43
[2021-04-06 04:50] VITALS: BP 118/52
--- NOTE | 2021-04-06 06:29 | NUR ---
ASSUMED CARE OF PT AT 1900. PT SLEPT THROUGHOUT THE NIGHT WITH NO COMPLAINTS, VSS. PT IS ALERT AND ORIENTED BUT AT NIGHTIME BECOMES PLEASANTLY CONFUSED, ASKING ABOUT . PT CALLS APPROPRIATELY TO AMBULATE TO BEDSIDE COMMODE, FALL PRECAUTIONS IN PLACE. ORAL PAIN MEDS GIVEN X1 TO ALLOW PT TO REST. PT WILL HAVE LOCK UP WORKER CONSULT TO HELP WITH MALNUTRITION AND IS PENDING DC TO [facility] IN THE NEXT FEW DAYS. WILL CONTINUE TO MONITOR.
--- NOTE | 2021-04-06 08:52 | HC ---
[facility] [place] [address] CONSULTATION Name: JACQUE GONZALEZ Room #: 203-P ADM IN M.R.#: [id number] Admission: 04/03/21 Attend Phys: Teri Huizar MD Discharge: Date of : [birth year] Report #: [id number] THIS REPORT FOR: cc: Alvino Mak MD, Randy MD Kerstein,Luis Enrique Machuca DO ~ DATE OF SERVICE: 04/04/2021 INPATIENT CL PSYCHIATRY EVALUATION PRIMARY ATTENDING PHYSICIAN: Teri Huizar MD CONSULTING PSYCHIATRIST: Luis Enrique Manning DO ADDITIONAL CONSULTANTS: Timur Sharp MD, Sergei Cardenas MD REASON FOR CONSULTATION: The patient was discharged emergently from the [facility] due to poor intake and electrolyte imbalance, possible need for intervention for her cholecystitis, cholelithiasis. SOURCES OF INFORMATION: Collateral from her , David, who was at bedside; interview with the patient; chart review. CHIEF COMPLAINT: "It's Monday." HISTORY OF PRESENT ILLNESS: This is an 85-year-old female familiar to me from very recent admission on [facility]. The patient, much to my surprise, was smiling and in good spirits. Her , David, was at bedside, whom I had only gotten to meet over the telephone. On the [facility] Unit, there is no visitation allowed; however, that is not the case on . The patient is oriented to day, month, year, where she is at. She still complains of lack of appetite. Denied pain symptoms presently. Intravenous line was hooked up. The patient yesterday was seen by Dr. Huizar on the [facility]. She was not able to eat anything at all. There were some adverse laboratory changes. Her sodium had dropped and her BUN and creatinine were increasing from 1.4 to 1.6. In addition, the patient was felt to need continuous IV fluids. Anyways, her spoke a fair amount and he discussed his challenge with her being ill and not eating. I discussed that yes I do think there is an element of clinical depression, but this is a multifactorial situation. She had a recent NSTEMI, she had acute renal failure. She now has poor intake. The general surgeon understandably is wanting to defer cholecystectomy until 30 days past her MT. I discussed that this would not be my call, but in the interest of trying to get her to recover in rehabilitation, such things as a PEG tube could be entertained as an intermediate modality, so she can get adequate nutrition and rehabilitation to survive surgery. I discussed that at this point the patient was not showing an [facility] [address] [address] CONSULTATION Name: JACQUE GONZALEZ Room #: 203-P ADM IN M.R.#: [id number] Admission: 04/03/21 Attend Phys: Teri Huizar MD Discharge: Date of : [birth year] Report #: [id number] imminent risk to self or others. She did have 1:1 when I entered the room. I discussed with Dr. Huizar and nursing staff the 1:1 is discontinued. In other events, the family and the patient had worked with Dr. Fernando when she was admitted medically previously. I texted Dr. Fernando the preference to continue to work with her and David's number. She will see the patient tomorrow. REVIEW OF SYSTEMS: Anorexia, feeling nauseous. No fevers, chills, night sweats. No dysuria or frequency of urination. There was foul smelling and whitish discharge noted by a urine specimen and we will see if anything became of that. She did have on 04/03/2021 greater than 30 bacteria; leukocytes, 1+ leukocyte esterase. It does not appear that a urine culture has been triggered. LABORATORY DATA: Most recent labs: White count 5.0, H and H 9.2 and 26.2, platelet count 136. Coags: PT 13.6, INR 1.26. Chemistry: Sodium 134, potassium 3.3, this is dated 04/04/2021, chloride 102, bicarbonate 20, anion gap 9, BUN 28, creatinine 1.5, estimated GFR 33, glucose 126, calcium 8.0. GGT 49, AST 31, ALT 20, alkaline phosphatase 174, total protein 5.2, albumin 1.6, which shows severe malnutrition. VITAL SIGNS: Today, pulse 77, BP 177/63. From my 03/31/2021 evaluation, I will fill in a few pieces here. The patient had moved to [facility] after getting to her second . They both were . She was most recently living in [place], [place]. She had been admitted at [facility] and then I think briefly at a nursing facility and then was brought here with the chest pain situation and NSTEMI was unearthed and she had acute kidney injury accompanying that PAST PSYCHIATRIC HISTORY: Includes mild cognitive impairment, diagnosed within the last year, history of major depressive disorder, mental health treatment in the past that was involved in a custody vaughn. Dr. Fernando was concerned the geographic change affected her ____ suicidal thoughts. PHYSICAL EXAMINATION: In bed, propped up from the head of the bed, hooked up to an IV, cheerful, but somewhat ill-appearing. MENTAL STATUS EXAMINATION: Well-developed, ill-appearing female, wearing glasses. Attention fair. Concentration limited. Speech normal rate, volume, and tone. Thought process: Linear and goal directed. Thought content: Focused on ameliorating her situation. Denied suicidal or homicidal ideation, auditory, visual, or tactile hallucinations. Denied hopelessness, helplessness. Mood and affect was okay, euthymic, a bit congruent, fair range. Memory not formally tested. Insight fair. Judgment limited. Fund of knowledge, no greater than average. [facility] [address] [address] CONSULTATION Name: JACQUE GONZALEZ Room #: [address] [place] [address] [place] .R.#: [id number] Admission: 04/03/21 Attend Phys: Teri Huizar MD Discharge: Date of : [birth year] Report #: [id number] FORMULATION: An 85-year-old female, medically admitted due to inability to eat, electrolyte imbalance and acute kidney injury. RECOMMENDATIONS: At present, we will review her meds. She is on metoprolol 50 mg oral daily, no psychiatric objections to that; diltiazem ER 180 mg oral daily, no psychiatric objections; atorvastatin 20 mg oral daily, no psychiatric objections; apixaban, which is Eliquis 2.5 mg oral b.i.d. I think that is fine. The patient is on Rocephin 1 gram IV piggyback daily, pantoprazole 20 mg IV daily. I believe she is on Rocephin for suspected UTI. At present given her inability to eat, swallow and relative improvement from the IV fluids, I do not think it is worth adding an antidepressant to the picture. There are always GI side effect concerns with that. Dr. Fernando will see the patient tomorrow. Time spent on this case is at least 60 minutes, greater than 50% of time was spent on review of records and coordination of care. <ELECTRONICALLY SIGNED> By: Luis Enrique Manning DO 04/06/21 0852 1035 1252 Luis Enrique Manning DO /nt
[2021-04-06 08:55] VITALS: BP 125/71
[2021-04-06 12:18] VITALS: BP 125/73
--- NOTE | 2021-04-06 14:51 | NUR ---
Nutrition: RD received consult for malnutrition. Familiar with pt from recent hospital stay. Multiple medical issues including NSTEMI, cholelithiasis with possibly need for choly, UTI and recent [facility] stay for unspecified psychosis. Dtr reports poor oral intake > 1 year but no significant loss although does appear to have facial wasting. Ensure clear ordered but pt is not eating and has voiced wanting to . Per dtr plan of care is to transition to hospice and get pt home as soon as possible. Deferring further eval but available PRN.
--- NOTE | 2021-04-06 16:17 | NUR ---
I have reviewed the documentation by LINDA ONEAL from 04/06/21 to 04/06/21 and I concur with it. CASSANDRA BARTLETT
[2021-04-06 16:36] VITALS: BP 124/56
--- NOTE | 2021-04-06 17:15 | NUR ---
Patient on [facility] unit for 3 days. She readmitted to acute care. Dtr arrived last evening from [place]. Phys discussed dc planning and family interest in hospice care. Explained with spouse and dtr Gely McVnikolay [phone] hospice services. Medicare pays for hospice benefit but not room at nursing facility. Spouse and dtr reports patient does not have 24/7 care at home. Gave pricing of 3 facilities. They are interested in [facility]. Referral to [facility]. Requested liason call dtr and spouse to review. Case mgt following.
[2021-04-06 19:53] VITALS: BP 120/71
--- NOTE | 2021-04-06 20:08 | NUR ---
took over care for this patient at 0700. patient resting in bed; patient AXOX1-2; patient very confused. requires reorientation by this nurse and her family. patient does not appear in any acute distress at this time or does not appear to be in pain. fall precautions are in place; call light within reach. spoke with daughter regarding mother's condition and possibility of hospice; daughter became tearful during conversation. Patient resting comfortably in bed.
--- NOTE | 2021-04-07 03:45 | NUR ---
PROGRESS PT ALERT TO SELF AND SITUATION. BUT CONFUSED AT TIMES. LUNGS CLEAR BUT DIMINISHED. DENIES PAIN. VSS, TELE READING AFIB WITH RATES IN THE 80'S. UP TO BSC WITH 1, VOIDING QS NO INCONTINENCE THIS SHIFT. IMPULSIVE AND FORGETS TO USE CALL LIGHT. IV TO LF INFUSING IVF D5NS@75. RIGHT ARM WITH 2 TO 3 PLUS EDEMA ELEVATED ON PILLOW. ACCUCHECKS CONTINUE 113 AT HS. PLAN IS TO EVAL FOR REHAB, SNF OR HOSPICE. CONTINUE POC.
[2021-04-07 04:07] VITALS: BP 123/70
[2021-04-07 07:24] VITALS: BP 116/55
[2021-04-07 11:32] VITALS: BP 130/72
[2021-04-07] MEDS ORDERED: LORAZEPAM I2 MG/1 ML SUBLING ×2 (15:29)
[2021-04-07] MEDS ORDERED: MORPHINE S10 MG/5 M2 SUBLING ×2 (15:29)
[2021-04-07] MEDS ORDERED: PEPCID20 MG PO ×2 (15:29)
[2021-04-07] MEDS ORDERED: CEFUROXIME250 MG PO ×2 (15:29)
[2021-04-07 15:55] VITALS: BP 117/52
--- NOTE | 2021-04-07 16:21 | NUR ---
family chose [facility] for ltc. They have no preference for hospice agency referral to [facility] hospice. [facility] painter maintenance came to hospital for eval. Met with patient, dtr and spouse at bedside. Patient signed on hospice services and consents signed for start of care at [facility]. Faxed orders, [employer] for [phone]. RN, staff, patient, dtr and spouse all in agreement and aware of dc timeframe. no further needs
--- NOTE | 2021-04-07 17:57 | NUR ---
REPORT CALLED [facility] AT RECEIVING FACILITY. TRANSPORT PICKED PT UP AT 1750 WITHOUT INCIDENT. REPORT AND CARE TRANSFERRED TO TRANSPORT. PT MOVED TO TRANSPORT COT WITHOUT INCIDENT.
== END 2021-04-07 17:59 | disposition hospice, home (50) | DRG 444 ==
LOC: 2N 18:42
PROVIDERS: Internal Medicine; ADMIT Internal Medicine; ATTEND Internal Medicine
PROC: B01B1ZZ Fluoroscopy of Spinal Cord using Low Osmolar Contrast (ICD-10-PCS; principal; 2021-04-05)
PROC: 009U3ZX Drainage of Spinal Canal, Percutaneous Approach, Diagnostic (ICD-10-PCS; principal; 2021-04-05)
DX: K80.20 Calculus of gallbladder without cholecystitis without obstruction (principal); I21.4 Non-ST elevation (NSTEMI) myocardial infarction; N17.0 Acute kidney failure with tubular necrosis; N39.0 Urinary tract infection, site not specified; R45.851 Suicidal ideations; E87.2 Acidosis; F03.90 Unspecified dementia, unspecified severity, without behavioral disturbance, psychotic disturbance, mood disturbance, and anxiety; E78.5 Hyperlipidemia, unspecified; E86.0 Dehydration; F32.9 Major depressive disorder, single episode, unspecified; E87.6 Hypokalemia; I25.10 Atherosclerotic heart disease of native coronary artery without angina pectoris; E83.42 Hypomagnesemia; I48.0 Paroxysmal atrial fibrillation; N18.30 Chronic kidney disease, stage 3 unspecified; D64.9 Anemia, unspecified; R62.7 Adult failure to thrive; R53.81 Other malaise; E53.8 Deficiency of other specified B group vitamins; R68.81 Early satiety; I12.9 Hypertensive chronic kidney disease with stage 1 through stage 4 chronic kidney disease, or unspecified chronic kidney disease; B96.20 Unspecified Escherichia coli [E. coli] as the cause of diseases classified elsewhere; Z88.2 Allergy status to sulfonamides; Z87.891 Personal history of nicotine dependence; Z68.28 Body mass index [BMI] 28.0-28.9, adult
CPT/HCPCS: 10081